=== PATIENT | male | born 1960 | race Caucasian/White ===

== ENCOUNTER 2020-11-06 22:58 | Inpatient (IN) ==
[2020-11-06] MEDS ORDERED: 0.9 % Sodium Chloride 1,000 ML IVC ONE (23:28)
[2020-11-06] MEDS ORDERED: Vancomycin 2,000 MG/520 ML IV.SOLN IVPB ONE (23:28)
[2020-11-07] MEDS ORDERED: Ondansetron 4 MG/2 ML VIAL IVP ONE (00:12)
[2020-11-07] MEDS ORDERED: *HR* FentaNYL (PF) 100 MCG/2 ML VIAL IVP ONE (00:12)
[2020-11-07 00:18] LABS: Basophils % 0.4 %; Eosinophils # 0.1 K/mcL (0.0-0.6); Hematocrit 42.2 % (37.5-50.1); Hemoglobin 13.7 g/dL (12.9-16.9); Immature Granulocytes % 0.3 % (0-4); Lymphocytes # 0.7 K/mcL (0.6-4.6); Lymphocytes % 7.3 %; Mean Corpuscular HGB Conc 32.5 g/dL (31.6-35.5); Mean Corpuscular Hemoglobin 29.7 pg (28.0-33.3); Mean Corpuscular Volume 91.3 fL (83.0-100.0); Monocytes # 0.5 K/mcL (0.0-1.3); Monocytes % 5.1 %; Neutrophils # 8.4 K/mcL (1.6-8.9); Platelet Count 163 K/mcL (140-400); Red Blood Count 4.62 M/mcL (4.19-5.50); Red Cell Distribution Width 15.3 % (11.5-14.5); Segmented Neutrophils % 85.9 %; White Blood Count 9.8 K/mcL (4.3-11.1)
[2020-11-07 00:27] LABS: INR 1.6; Prothrombin Time 17.9 Seconds (9.4-12.1)
[2020-11-07 00:29] LABS: Activated Partial Thrombo Time 32.5 Seconds (26.0-36.0)
[2020-11-07 00:40] LABS: Alanine Aminotransferase 7 Units/L (7-52); Albumin 4.1 g/dL (3.5-5.7); Albumin/Globulin Ratio 1.1 (1.1-2.2); Alkaline Phosphatase 91 Units/L (34-104); Aspartate Amino Transferase 15 Units/L (13-39); BUN/Creatinine Ratio 18 (6-26); Bilirubin,Direct 0.6 mg/dL (0.0-0.2); Bilirubin,Indirect 1.2 mg/dL (0.0-1.0); Bilirubin,Total 1.8 mg/dL (0.3-1.0); Blood Urea Nitrogen 17 mg/dL (8-23); Calcium 9.4 mg/dL (8.6-10.3); Carbon Dioxide 23 mEq/L (23-29); Chloride 103 mEq/L (98-107); Globulin 3.8 g/dL (2.4-3.5); Glucose 96 mg/dL (70-105); Magnesium 1.9 mg/dL (1.6-2.6); Osmolality,Calculated 291 (280-300); Phosphorous 2.9 mg/dL (2.7-4.5); Potassium 4.1 mEq/L (3.5-5.1); Sodium 140 mEq/L (136-145); Total Protein 7.9 g/dL (6.4-8.9); Troponin I < 0.03 ng/mL (< 0.04); eGFR For African Americans > 60 (> 60); eGFR For Non-African Americans > 60 (> 60)
[2020-11-07 01:36] LABS: Bilirubin,Urine Negative (Negative); Blood,Urine Trace (Negative); Clarity,Urine Clear (Clear); Color,Urine Yellow (Yellow); Glucose,Urine (UA) Normal (Normal); Hyaline Casts,Urine Few per lpf (None Seen); Ketones,Urine Negative (Negative); Leukocyte Esterase,Urine Negative (Negative); Mucus,Urine Few per lpf (None-Few); Nitrite,Urine Negative (Negative); PH,Urine 6.5 pH Units (5.0-8.0); Protein,Urine 100 mg/dL (Neg-Trace); Specific Gravity,Urine 1.024 (1.010-1.025); WBC,Urine 0-3 per hpf (0-3)
[2020-11-07] MEDS ORDERED: *HR* HYDROmorphone (PF) 1 MG/ML SYRINGE IVP ONE ×2 (01:36→02:49)
[2020-11-07] MEDS ORDERED: Ketorolac 15 MG/ML VIAL IVP ONE (03:05)
[2020-11-07] MEDS ORDERED: 0.9 % Sodium Chloride 1,000 ML IVC ONE ×2 (03:28→04:13)
[2020-11-07] MEDS ORDERED: CeFAZolin 2,000 MG/120 ML BAG IVPB SCH (04:00)
[2020-11-07] MEDS ORDERED: Isovue-370 500 ML BOTTLE IVP ONE (04:20)
[2020-11-07] MEDS ORDERED: Naloxone 0.4 MG/ML INJ IVP PRN (04:26)
[2020-11-07] MEDS ORDERED: Melatonin 3 MG TABLET PO PRN (04:32)
[2020-11-07] MEDS ORDERED: *HR* Promethazine 25 MG/ML VIAL IM PRN (04:32)
[2020-11-07] MEDS ORDERED: Acetaminophen 325 MG TABLET PO PRN (04:32)
[2020-11-07] MEDS ORDERED: *HR* OxyCODONE Immed Rel 5 MG TABLET PO PRN (04:32)
[2020-11-07] MEDS ORDERED: *HR* HYDROcodone/Acet 5/325 mg TABLET PO PRN (04:32)
[2020-11-07] MEDS: Cefepime HCl 1,000 MG in 0.9 % Sodium Chloride Mini Bag 100 ML IVPB SCH ×2 (06:33→12:19)
[2020-11-07] MEDS: Aspirin Enteric Coated 81 MG Tablet PO SCH (07:47)
[2020-11-07] MEDS: *HR* Heparin 5,000 UNIT/ML VIAL SQ SCH ×2 (07:47→17:15)
[2020-11-07] MEDS: Vancomycin 2,000 MG/520 ML IV.SOLN IVPB SCH (12:19)
[2020-11-07] MEDS: Ondansetron 4 MG/2 ML VIAL IVP PRN (15:33)
[2020-11-07] MEDS: ceFAZolin 2,000 MG in Water for inj. (sterile) 20 ML IVP SCH (17:14)
[2020-11-08] MEDS: ceFAZolin 2,000 MG in Water for inj. (sterile) 20 ML IVP SCH ×3 (00:29→17:38)
[2020-11-08] MEDS: Vancomycin 2,000 MG/520 ML IV.SOLN IVPB SCH ×2 (00:29→12:34)
[2020-11-08] MEDS: Ondansetron 4 MG/2 ML VIAL IVP PRN ×2 (00:30→09:02)
[2020-11-08 05:02] LABS: Basophils % 0.4 %; Eosinophils % 1.6 %; Hematocrit 40.5 % (37.5-50.1)
[2020-11-08 05:03] LABS: Eosinophils # 0.1 K/mcL (0.0-0.6); Hemoglobin 13.1 g/dL (12.9-16.9); Immature Granulocytes % 0.4 % (0-4); Immature Platelets 2.3 % (1.1-6.1); Lymphocytes # 0.7 K/mcL (0.6-4.6); Lymphocytes % 8.2 %; Mean Corpuscular HGB Conc 32.3 g/dL (31.6-35.5); Mean Corpuscular Hemoglobin 29.9 pg (28.0-33.3); Mean Corpuscular Volume 92.5 fL (83.0-100.0); Monocytes # 0.7 K/mcL (0.0-1.3); Monocytes % 8.3 %; Neutrophils # 7.2 K/mcL (1.6-8.9); Platelet Count 135 K/mcL (140-400); Red Blood Count 4.38 M/mcL (4.19-5.50); Red Cell Distribution Width 15.4 % (11.5-14.5); Segmented Neutrophils % 81.1 %; White Blood Count 8.9 K/mcL (4.3-11.1)
[2020-11-08 05:12] LABS: INR 1.7; Prothrombin Time 19.4 Seconds (9.4-12.1)
[2020-11-08 05:22] LABS: Alanine Aminotransferase 6 Units/L (7-52); Albumin 3.8 g/dL (3.5-5.7); Albumin/Globulin Ratio 1.1 (1.1-2.2); Alkaline Phosphatase 74 Units/L (34-104); Aspartate Amino Transferase 14 Units/L (13-39); BUN/Creatinine Ratio 23 (6-26); Bilirubin,Total 2.6 mg/dL (0.3-1.0); Blood Urea Nitrogen 19 mg/dL (8-23); Calcium 8.7 mg/dL (8.6-10.3); Carbon Dioxide 20 mEq/L (23-29); Chloride 105 mEq/L (98-107); Globulin 3.6 g/dL (2.4-3.5); Glucose 84 mg/dL (70-105); Osmolality,Calculated 285 (280-300); Sodium 137 mEq/L (136-145); Total Protein 7.4 g/dL (6.4-8.9); eGFR For African Americans > 60 (> 60); eGFR For Non-African Americans > 60 (> 60)
[2020-11-08] MEDS: *HR* Heparin 5,000 UNIT/ML VIAL SQ SCH ×2 (05:32→17:37)
[2020-11-08 05:43] LABS: Estimated Average Glucose 123 mg/dl; Hemoglobin A1C 5.9 %
[2020-11-08] MEDS: Aspirin Enteric Coated 81 MG Tablet PO SCH (07:52)
[2020-11-08 11:49] LABS: Vancomycin,Trough 16 mcg/mL (5-10)
[2020-11-08 13:56] LABS: C-Reactive Protein 114 mg/L (Less than 10)
[2020-11-08] MEDS ORDERED: *HR* Metoprolol 5 MG/5 ML VIAL IVP ONE (22:28)
[2020-11-09] MEDS: ceFAZolin 2,000 MG in Water for inj. (sterile) 20 ML IVP SCH ×3 (00:39→17:00)
[2020-11-09] MEDS: Vancomycin 2,000 MG/520 ML IV.SOLN IVPB SCH (00:47)
[2020-11-09 04:58] LABS: C-Reactive Protein 90 mg/L (Less than 10)
[2020-11-09] MEDS: *HR* Heparin 5,000 UNIT/ML VIAL SQ SCH ×2 (05:23→17:01)
[2020-11-09] MEDS: Aspirin Enteric Coated 81 MG Tablet PO SCH (07:58)
[2020-11-09 08:23] LABS: Alanine Aminotransferase 4 Units/L (7-52); Albumin 3.7 g/dL (3.5-5.7); Albumin/Globulin Ratio 1.1 (1.1-2.2); Alkaline Phosphatase 71 Units/L (34-104); Aspartate Amino Transferase 14 Units/L (13-39); BUN/Creatinine Ratio 20 (6-26); Bilirubin,Direct 0.7 mg/dL (0.0-0.2); Bilirubin,Indirect 1.3 mg/dL (0.0-1.0); Blood Urea Nitrogen 16 mg/dL (8-23); Calcium 8.6 mg/dL (8.6-10.3); Carbon Dioxide 18 mEq/L (23-29); Chloride 107 mEq/L (98-107); Globulin 3.3 g/dL (2.4-3.5); Glucose 88 mg/dL (70-105); Osmolality,Calculated 279 (280-300); Potassium 3.9 mEq/L (3.5-5.1); Sodium 134 mEq/L (136-145); eGFR For African Americans > 60 (> 60); eGFR For Non-African Americans > 60 (> 60)
[2020-11-09] MEDS: Vancomycin 1,250 MG/262.5 ML IV.SOLN IVPB SCH (13:02)
[2020-11-10] MEDS: ceFAZolin 2,000 MG in Water for inj. (sterile) 20 ML IVP SCH ×3 (00:08→15:12)
[2020-11-10] MEDS: Vancomycin 1,250 MG/262.5 ML IV.SOLN IVPB SCH ×2 (00:13→12:10)
[2020-11-10] MEDS: *HR* Heparin 5,000 UNIT/ML VIAL SQ SCH (05:38)
[2020-11-10] MEDS: Aspirin Enteric Coated 81 MG Tablet PO SCH (07:57)
[2020-11-10 08:56] LABS: BUN/Creatinine Ratio 21 (6-26); Blood Urea Nitrogen 16 mg/dL (8-23); Calcium 8.8 mg/dL (8.6-10.3); Carbon Dioxide 21 mEq/L (23-29); Chloride 107 mEq/L (98-107); Glucose 95 mg/dL (70-105); Osmolality,Calculated 281 (280-300); Potassium 3.7 mEq/L (3.5-5.1); Sodium 135 mEq/L (136-145); eGFR For African Americans > 60 (> 60); eGFR For Non-African Americans > 60 (> 60)
[2020-11-10 15:07] VITALS: BP 118/84
== END 2020-11-10 16:58 | disposition home or self-care (01) | DRG 872 ==
LOC: EMEROOARM 22:58 → 3ANU 22:58 → SUATTDRO 11-07 03:45 → 3ANU 11-07 05:44
PROVIDERS: ADMIT Student in an Organized Health Care Education/Training Program; ATTEND Internal Medicine

== ENCOUNTER 2020-12-02 12:42 | Observation (INO) ==
[2020-12-02 13:28] LABS: Basophils # 0.1 K/mcL (0.0-0.2); Basophils % 0.9 %; Eosinophils # 0.2 K/mcL (0.0-0.6); Eosinophils % 2.4 %; Hematocrit 46.5 % (37.5-50.1); Hemoglobin 14.5 g/dL (12.9-16.9); Immature Granulocytes % 0.4 % (0-4); Lymphocytes # 0.9 K/mcL (0.6-4.6); Lymphocytes % 12.7 %; Mean Corpuscular HGB Conc 31.2 g/dL (31.6-35.5); Mean Corpuscular Hemoglobin 29.1 pg (28.0-33.3); Mean Corpuscular Volume 93.4 fL (83.0-100.0); Mean Platelet Volume 10.4 fL (9.4-12.4); Monocytes # 0.6 K/mcL (0.0-1.3); Monocytes % 8.1 %; Neutrophils # 5.3 K/mcL (1.6-8.9); Platelet Count 164 K/mcL (140-400); Red Blood Count 4.98 M/mcL (4.19-5.50); Red Cell Distribution Width 15.7 % (11.5-14.5); Segmented Neutrophils % 75.5 %
[2020-12-02 14:31] LABS: BUN/Creatinine Ratio 18 (6-26); Blood Urea Nitrogen 15 mg/dL (8-23); Calcium 9.7 mg/dL (8.6-10.3); Carbon Dioxide 23 mEq/L (23-29); Chloride 105 mEq/L (98-107); Glucose 81 mg/dL (70-105); Osmolality,Calculated 286 (280-300); Potassium 3.8 mEq/L (3.5-5.1); Sodium 138 mEq/L (136-145); eGFR For African Americans > 60 (> 60); eGFR For Non-African Americans > 60 (> 60)
[2020-12-02 14:33] LABS: Troponin I < 0.03 ng/mL (< 0.04)
[2020-12-02] MEDS ORDERED: Perflutren Lipid Microsphere 1.3 ML in 0.9 % Sodium Chloride 8.7 ML IVP PRN (14:47)
[2020-12-02 14:49] LABS: Thyroid Stimulating Hormone 0.138 mcIU/mL (0.340-5.600)
[2020-12-02] MEDS ORDERED: Isovue-370 500 ML BOTTLE IVP ONE (14:58)
[2020-12-02 15:00] LABS: Alanine Aminotransferase 6 Units/L (7-52); Albumin 4.3 g/dL (3.5-5.7); Albumin/Globulin Ratio 1.1 (1.1-2.2); Alkaline Phosphatase 87 Units/L (34-104); Aspartate Amino Transferase 19 Units/L (13-39); Bilirubin,Direct 0.5 mg/dL (0.0-0.2); Bilirubin,Indirect 1.3 mg/dL (0.0-1.0); Bilirubin,Total 1.8 mg/dL (0.3-1.0); Magnesium 2.1 mg/dL (1.6-2.6); Total Protein 8.3 g/dL (6.4-8.9)
[2020-12-02] MEDS ORDERED: Melatonin 3 MG TABLET PO PRN (17:54)
[2020-12-02] MEDS ORDERED: Ondansetron 4 MG/2 ML VIAL IVP PRN (17:54)
[2020-12-02] MEDS ORDERED: Acetaminophen 325 MG TABLET PO PRN (17:54)
[2020-12-02] MEDS: Furosemide 40 MG/4 ML VIAL IVP SCH (18:20)
[2020-12-03 02:42] LABS: Red Cell Distribution Width 15.6 % (11.5-14.5)
[2020-12-03 02:44] LABS: Hematocrit 43.7 % (37.5-50.1); Hemoglobin 13.5 g/dL (12.9-16.9); Immature Platelets 3.9 % (1.1-6.1); Mean Corpuscular HGB Conc 30.9 g/dL (31.6-35.5); Mean Corpuscular Hemoglobin 29.2 pg (28.0-33.3); Mean Corpuscular Volume 94.6 fL (83.0-100.0); Mean Platelet Volume 10.7 fL (9.4-12.4); Red Blood Count 4.62 M/mcL (4.19-5.50); White Blood Count 5.9 K/mcL (4.3-11.1)
[2020-12-03 03:04] LABS: BUN/Creatinine Ratio 16 (6-26); Blood Urea Nitrogen 14 mg/dL (8-23); Calcium 9.1 mg/dL (8.6-10.3); Carbon Dioxide 22 mEq/L (23-29); Chloride 106 mEq/L (98-107); Glucose 79 mg/dL (70-105); Osmolality,Calculated 281 (280-300); Potassium 3.8 mEq/L (3.5-5.1); Sodium 136 mEq/L (136-145); eGFR For African Americans > 60 (> 60); eGFR For Non-African Americans > 60 (> 60)
[2020-12-03 03:05] LABS: Troponin I < 0.03 ng/mL (< 0.04)
[2020-12-03] MEDS ORDERED: *HR* Enoxaparin 40 MG/0.4 ML SYRINGE SQ SCH (06:00)
[2020-12-03] MEDS: Aspirin Enteric Coated 81 MG Tablet PO SCH (08:15)
[2020-12-03] MEDS: Furosemide 40 MG/4 ML VIAL IVP SCH (08:24)
[2020-12-03] MEDS ORDERED: lisinopriL 5 MG TABLET PO SCH (09:00)
[2020-12-03] MEDS: Metoprolol XL (24 HR) Succ 25 MG TAB.ER.24H PO SCH ×2 (10:17→21:14)
[2020-12-03] MEDS: Spironolactone 25 MG TABLET PO SCH (12:00)
[2020-12-03] MEDS: Apixaban 5 MG TABLET PO SCH (21:15)
[2020-12-04 04:54] LABS: Prothrombin Time 22.3 Seconds (9.4-12.1)
[2020-12-04 05:09] LABS: Alanine Aminotransferase 5 Units/L (7-52); Albumin 3.7 g/dL (3.5-5.7); Albumin/Globulin Ratio 1.1 (1.1-2.2); Alkaline Phosphatase 78 Units/L (34-104); Aspartate Amino Transferase 16 Units/L (13-39); BUN/Creatinine Ratio 20 (6-26); Bilirubin,Direct 0.6 mg/dL (0.0-0.2); Bilirubin,Total 1.6 mg/dL (0.3-1.0); Blood Urea Nitrogen 16 mg/dL (8-23); Calcium 8.9 mg/dL (8.6-10.3); Carbon Dioxide 24 mEq/L (23-29); Chloride 105 mEq/L (98-107); Globulin 3.3 g/dL (2.4-3.5); Glucose 85 mg/dL (70-105); Osmolality,Calculated 284 (280-300); Potassium 3.6 mEq/L (3.5-5.1); Sodium 137 mEq/L (136-145); eGFR For African Americans > 60 (> 60); eGFR For Non-African Americans > 60 (> 60)
[2020-12-04] MEDS: Furosemide 40 MG/4 ML VIAL IVP SCH ×2 (05:58→08:41)
[2020-12-04] MEDS: Spironolactone 25 MG TABLET PO SCH (08:38)
[2020-12-04] MEDS: Apixaban 5 MG TABLET PO SCH ×2 (08:38→19:47)
[2020-12-04] MEDS: Metoprolol XL (24 HR) Succ 25 MG TAB.ER.24H PO SCH ×2 (08:38→19:47)
[2020-12-04] MEDS: Aspirin Enteric Coated 81 MG Tablet PO SCH (08:38)
[2020-12-05 01:28] LABS: BUN/Creatinine Ratio 20 (6-26); Blood Urea Nitrogen 17 mg/dL (8-23); Calcium 9.3 mg/dL (8.6-10.3); Carbon Dioxide 23 mEq/L (23-29); Chloride 105 mEq/L (98-107); Glucose 101 mg/dL (70-105); Osmolality,Calculated 284 (280-300); Potassium 3.6 mEq/L (3.5-5.1); Sodium 136 mEq/L (136-145); eGFR For African Americans > 60 (> 60); eGFR For Non-African Americans > 60 (> 60)
[2020-12-05] MEDS ORDERED: Bumetanide 1 MG TABLET PO SCH ×2 (08:30→09:00)
[2020-12-05] MEDS ORDERED: Spironolactone 25 MG TABLET PO SCH (09:00)
[2020-12-05] MEDS: Aspirin Enteric Coated 81 MG Tablet PO SCH (10:15)
[2020-12-05] MEDS: Metoprolol XL (24 HR) Succ 25 MG TAB.ER.24H PO SCH ×2 (10:15→23:28)
[2020-12-05] MEDS: Apixaban 5 MG TABLET PO SCH ×2 (10:15→20:00)
[2020-12-06 06:08] LABS: BUN/Creatinine Ratio 20 (6-26); Blood Urea Nitrogen 16 mg/dL (8-23); Calcium 8.9 mg/dL (8.6-10.3); Carbon Dioxide 25 mEq/L (23-29); Chloride 104 mEq/L (98-107); Glucose 90 mg/dL (70-105); Osmolality,Calculated 283 (280-300); Potassium 3.6 mEq/L (3.5-5.1); Sodium 136 mEq/L (136-145); eGFR For African Americans > 60 (> 60); eGFR For Non-African Americans > 60 (> 60)
[2020-12-06 08:10] VITALS: BP 98/64; PULSE 82; TEMP 98.2; O2SAT 94
[2020-12-06] MEDS: Apixaban 5 MG TABLET PO SCH (09:04)
[2020-12-06] MEDS: Aspirin Enteric Coated 81 MG Tablet PO SCH (09:04)
== END 2020-12-06 11:30 | disposition home or self-care (01) ==
LOC: EMEROOARM 12:42 → 3BNU 12:42 → SUATTDRO 14:50 → 3BNU 16:09
PROVIDERS: ADMIT Internal Medicine; ATTEND Internal Medicine